=== PATIENT | female | born 2000 | race Caucasian/White ===

== ENCOUNTER 2022-02-26 23:20 | Emergency (ER) | payer OTHER ==
[2022-02-27 01:46] LABS: BASOPHIL 0.6 % (0-2); EOSINOPHIL 2.1 % (0-5); HCT 40.9 % (37.0-47.0); MCH 29.5 pg (25.0-31.0); MCHC 34.2 g/dL (32.0-36.0); MCV 86.3 fL (78.0-100.0); MONOCYTE 7.3 % (0-12); MPV 10.4 fL (6.0-9.5); NEUTROPHIL 59.8 % (41-80); NRBC 0; PLT 292 K/uL (150-400); RBC 4.74 M/uL (4.20-5.40); RDW 12.5 % (11.5-14.0); WBC 8.9 K/uL (4.0-10.5)
[2022-02-27 02:06] LABS: ALBUMIN 3.6 g/dL (3.4-5.0); BILIRUBIN - TOTAL 0.3 mg/dL (0.2-1.0); CREATININE 0.75 mg/dL (0.51-0.95); GLOBULIN (CALCULATION) 3.7 g/dL; POTASSIUM 3.5 mmol/L (3.5-5.1); TOTAL PROTEIN 7.3 g/dL (6.4-8.2)
[2022-02-27 02:42] LABS: INFLUENZA A NAA NEGATIVE (NEGATIVE)
[2022-02-27 02:44] LABS: CORONAVIRUS 2019 SARS-COV-2 POSITIVE (NEGATIVE)
[2022-02-27] MEDS ORDERED: AZITHROMYCIN250 MG PO (03:10)
[2022-02-27] MEDS ORDERED: PREDNISONE 20MG20 MG PO (03:10)
[2022-02-27] MEDS ORDERED: VENTOLIN HFA IN18 GM INH (03:10)
== END 2022-02-27 03:55 | disposition home or self-care (01) ==
LOC: FER 23:20
PROVIDERS: Internal Medicine
DX: U07.1 COVID-19 (principal); R09.1 Pleurisy; F17.290 Nicotine dependence, other tobacco product, uncomplicated
CPT/HCPCS: 36415; 71045; 80053; 83690; 83735; 83880; 84145; 84484; 85025; 86140; 93005; 94640; J1100; U0002

== ENCOUNTER 2022-03-15 12:19 | Emergency (ER) | payer OTHER ==
[~2022-03-15 12:19] MED LIST: AZITHROMYCIN250 MG PO; PREDNISONE 20MG20 MG PO; VENTOLIN HFA IN18 GM INH
[2022-03-15 13:36] LABS: CORONAVIRUS 2019 SARS-COV-2 NEGATIVE (NEGATIVE); INFLUENZA A NAA POSITIVE (NEGATIVE)
[2022-03-15] MEDS ORDERED: TESSALON PERLE100 MG PO (14:23)
[2022-03-15] MEDS ORDERED: VENTOLIN HFA18 GM INH (14:23)
[2022-03-15] MEDS ORDERED: TAMIFLU 75MG CA75 MG PO (14:23)
== END 2022-03-15 14:48 | disposition home or self-care (01) ==
LOC: FER 12:19
PROVIDERS: Emergency Medicine
DX: J10.1 Influenza due to other identified influenza virus with other respiratory manifestations (principal); F17.290 Nicotine dependence, other tobacco product, uncomplicated; Z20.822 Contact with and (suspected) exposure to COVID-19; Z28.310 Unvaccinated for COVID-19
CPT/HCPCS: 99283; U0002

== ENCOUNTER 2022-04-02 02:27 | Emergency (ER) | payer OTHER ==
[~2022-04-02 02:27] MED LIST changes: +TAMIFLU 75MG CA75 MG PO; +TESSALON PERLE100 MG PO; +VENTOLIN HFA18 GM INH
[2022-04-02 03:50] LABS: INFLUENZA A NAA NEGATIVE (NEGATIVE)
[2022-04-02 03:54] LABS: CORONAVIRUS 2019 SARS-COV-2 POSITIVE (NEGATIVE)
[2022-04-02] MEDS ORDERED: VENTOLIN HFA IN18 GM INH (04:03)
== END 2022-04-02 04:12 | disposition home or self-care (01) ==
LOC: FER 02:27
PROVIDERS: Emergency Medicine
DX: U07.1 COVID-19 (principal); R06.2 Wheezing; J45.909 Unspecified asthma, uncomplicated; F17.200 Nicotine dependence, unspecified, uncomplicated; Z28.310 Unvaccinated for COVID-19
CPT/HCPCS: 71045; 94640; 94664; J2930; U0002